=== PATIENT | female | born 1995 | race Two or more races ===

== ENCOUNTER 2018-12-03 10:25 | Emergency (ER) | payer MEDICAID ==
[~2018-12-03] VITALS: Ht 157.5 cm; Wt 78.9 kg
[2018-12-03 10:32] VITALS: BP 109/79
[2018-12-03 10:58] LABS: Urine Bacteria FEW /hpf (None Seen); Urine Blood Negative /uL (Negative); Urine Mucus FEW (None Seen); Urine Specific Gravity 1.027 (1.001-1.035); Urine WBC 7 /hpf (0 - 5)
[2018-12-03 11:19] LABS: Basophils # (auto) 0 uL; Hematocrit 38.3 % (36.0-46.0); Monocytes # (auto) 0.4 uL
[2018-12-03 11:21] LABS: Basophils % (auto) 0.2 % (0.0-2.0); Eosinophils # (auto) 0 uL; Eosinophils % (auto) 0.6 % (0.0-7.0); Hemoglobin 12.6 g/dL (12.2-16.2); Lymphocytes # (auto) 2.4 uL; Lymphocytes % (auto) 35.4 % (10.0-50.0); Mean Corpuscular Hemoglobin 26.4 pg (28.0-32.0); Mean Corpuscular Hgb Conc. 32.7 g/dL (32.0-36.0); Mean Corpuscular Volume 80.7 fL (80.0-100.0); Monocytes % (auto) 5.3 % (0.0-12.0); Neutrophils # (auto) 3.9 uL; Neutrophils % (auto) 58.5 % (37.0-80.0); Platelet Count (auto) 312 10^3/uL (140-450); Red Blood Cells 4.75 10^6/uL (4.0-5.20); Red Cell Distribution Width 15.3 % (11.8-14.3); White Blood Cell 6.7 10^3/uL (4.4-10.8)
[2018-12-03 11:37] LABS: Alanine Aminotransferase 25 U/L (13-56); Albumin 4.1 g/dL (3.4-5.0); Amylase 40 U/L (25-115); Anion Gap 5 (5-15); Aspartate Aminotransferase 14 U/L (15-37); Blood Urea Nitrogen 17 mg/dL (7-18); Calcium 8.8 mg/dL (8.5-10.1); Carbon Dioxide 28 mmol/L (21-32); Chloride 107 mmol/L (98-107); Glucose 85 mg/dL (74-106); Lipase 130 U/L (73-393); Potassium 3.7 mmol/L (3.5-5.1); Sodium 140 mmol/L (136-145)
[2018-12-03 11:40] LABS: Alkaline Phosphatase 71 U/L (45-117); Bilirubin, Total 0.4 mg/dL (0.2-1.0); GFR African American > 60 mL/min; GFR Non-African American > 60 mL/min; Total Protein 7.9 g/dL (6.4-8.2)
== END 2018-12-03 12:55 | disposition home or self-care (01) ==
LOC: ER 10:25 → EDSEX 10:25 → ER 12:55
DX: N39.0 Urinary tract infection, site not specified (principal); Z91.040 Latex allergy status; Z32.02 Encounter for pregnancy test, result negative
CPT/HCPCS: 36415; 80053; 81001; 81025; 82150; 83690; 85025